=== PATIENT | male | born 2000 | race Caucasian/White ===

== ENCOUNTER 2023-05-17 07:17 | Emergency (ER) | payer OTHER, SELFPAY ==
[2023-05-17 07:21] VITALS: BP 123/85; PULSE 90; RESP 14; TEMP 36.5; O2SAT 97; BMI 18.1
--- NOTE | 2023-05-17 07:34 | ED.ABDPAIN ---
HPI - Abdominal Pain General Time Seen by Provider: 07:34 Date Seen: 05/17/23 Chief Complaint: Abdominal Pain Stated Complaint: Abdominal pain Time Seen by Provider: 05/17/23 07:45 Source: patient and RN notes reviewed Mode of arrival: ambulatory Limitations: no limitations History of Present Illness HPI narrative: Patient is a very pleasant 22-year-old male who comes to the emergency room for evaluation regarding ongoing abdominal pain. Patient awoke from sleep on MondayMay 14 with abdominal pain that he shows to be in the hypogastrium periumbilical area. This pain has persisted and has been associated with loose nonbloody stools in slight amounts since that time. Patient notes some mild nausea but no vomiting. Patient has not had any recent travel, recent antibiotic use or ingestion of any uncooked meats. No unusual pets at home. Abdominal pain does not radiate. Patient tried Tylenol earlier and states that did not touch the pain. Person who accompanies him here today notes that she also did not feel well on Monday but feels well now. Patient has a past history of pneumothorax x2 status post pleurodesis. Related Data Home Medications Medication Instructions Recorded Confirmed sertraline 25 mg tablet (Zoloft) 12.5 mg PO DAILY 05/17/23 05/17/23 Allergies Allergy/AdvReac Type Severity Reaction Status Date / Time No Known Drug Allergies Allergy Verified 05/17/23 07:28 Review of Systems Status of ROS Reports: 10 or more systems reviewed and unremarkable except as noted in History and below Const Denies: fever, chills or fatigue ENMT Denies: throat pain, neck pain or difficulty swallowing Cardio Denies: chest pain or shortness of breath with exertion Resp Denies: shortness of breath or cough GI Reports: abdominal pain, nausea and diarrhea (Nonbloody); Denies: vomiting, difficulty swallowing or blood in stool Denies: painful urination or urinary frequency Musculo Denies: neck pain Endo Denies: fatigue Exam Narrative: Exam Narrative: Alert and oriented. Nontoxic in appearance. Neck is supple. Heart with regular rate and rhythm. Lungs are clear bilaterally. Abdomen has some diffuse tenderness. Patient is certainly tender over the periumbilical area but also right lower quadrant epigastrium and left upper quadrant. Lower extremities without edema. Const: Vital Signs, click to edit/add: Vital Signs - 24 hr 05/17/23 07:21 Temperature 97.7 F Pulse Rate [Pulse Oximeter] 90 Respiratory Rate 14 Blood Pressure [Ri ght Upper Arm] 123/85 Pulse Oximetry 97 Oxygen Delivery Me thod Room Air Documenting provider has reviewed patient's vital signs: yes Course Course ED Course: At this time patient presents with ongoing pain in the abdomen for 3 days associated with only small amounts of loose stools. Differential diagnosis includes but is not limited to appendicitis, colitis, enterocolitis, gastritis, pancreatitis, Crohn's disease, ulcerative colitis. Will place IV in use Toradol 15 mg IV, Zofran 4 mg IV and 1 L of normal saline for discomfort. Will also check CBC, comprehensive panel, bilirubin, CRP, urinalysis, abdominal CT. At this time will sign patient out to my partner Dr. Westbrook for lab and radiological study examination as well as disposition. Vital Signs Vital signs: Initial Vital Signs Temperature 97.7 F 05/17/23 07:21 Temperature Source Temporal Artery Scan 05/17/23 07:21 Pulse Rate 90 05/17/23 07:21 Respiratory Rate 14 05/17/23 07:21 Blood Pressure 123/85 05/17/23 07:21 Blood Pressure Mean 97 05/17/23 07:21 Blood Pressure Position Supine 05/17/23 07:21 Pulse Oximetry 97 05/17/23 07:21 Oxygen Delivery Method Room Air 05/17/23 07:21 Vital Signs Temperature 97.7 F 05/17/23 07:21 Pulse Rate 90 05/17/23 07:21 Respiratory Rate 14 05/17/23 07:21 Blood Pressure 123/85 05/17/23 07:21 Pulse Oximetry 97 05/17/23 07:21 Oxygen Delivery Method Room Air 05/17/23 07:21 Temperature 97.7 F 05/17/23 07:21 Pulse Rate 90 05/17/23 07:21 Respiratory Rate 14 05/17/23 07:21 Blood Pressure 123/85 05/17/23 07:21 Pulse Oximetry 97 05/17/23 07:21 Oxygen Delivery Method Room Air 05/17/23 07:21 Discharge Plan Discharge Prescriptions: No Action sertraline [Zoloft] 25 mg tablet 12.5 mg PO DAILY Patient Comments: taking 10 mg
--- NOTE | 2023-05-17 07:44 | CRLHL7_ITS ---
For Patients: As a result of the Century Cures Act, medical imaging exams and procedure reports are released immediately into your electronic medical record. You may view this report before your referring provider. If you have questions, please contact your health care provider. INDICATION: Abdominal pain started 05/15/2023. Periumbilical pain. COMPARISON: None TECHNIQUE: CT examination of the abdomen and pelvis was performed following the uneventful intravenous administration of 65 cc of Isovue 370. Thin section axial images were obtained from the lung bases through the pubic symphysis. Oral contrast was not administered. Please note that all CT scans at this facility use dose modulation, iterative reconstruction, and/or weight-based dosing when appropriate to reduce radiation dose to as low as reasonably achievable. FINDINGS: LUNG BASES: The lung bases as visualized appear normal.The heart size is normal at the lung bases. LIVER/BILIARY SYSTEM:The liver is normal in size and configuration. There is no focal mass and there is no intra- or extra hepatic biliary ductal dilatation.The gall bladder appears normal. ADRENALS: Normal KIDNEYS, URETERS and BLADDER:The kidneys appear normal. No visible mass, calculus or hydronephrosis. The ureters and bladder as visualized appear normal. SPLEEN:Normal appearance. PANCREAS: Appears normal. RETROPERITONEUM and MESENTERY: There is no mass, adenopathy or aortic aneurysm. GASTROINTESTINAL SYSTEM: There is thickening of the wall of the cecum, ascending colon and a small portion of the transverse colon probably representing colitis. The appendix does not appear to be inflamed. There is no bowel obstruction. The small bowel appears to be normal. PELVIS: No mass, adenopathy or free fluid. OSSEOUS STRUCTURES and ABDOMINAL WALL: There is an age-appropriate appearance of the osseous structures.No significant abdominal wall defect. OTHER: No free fluid or free air. IMPRESSION: Findings likely related to colitis of the cecum, ascending colon and a portion of the transverse colon. No evidence of appendicitis. Please note that all CT scans at this facility use dose modulation, iterative reconstruction, and/or weight-based dosing when appropriate to reduce radiation dose to as low as reasonably achievable. Dictated by Girma Deutsch MD @ 05/17/2023 8:45:32 AM (Electronically Signed)
[2023-05-17] MEDS: 0.9 % SODIUM CHLORIDE 1000 ml 1,000 ML IV (08:01)
[2023-05-17] MEDS: ONDANSETRON 2 MG/ML inj 4 MG IVP (08:02)
[2023-05-17] MEDS: KETOROLAC 15 MG/ML inj IVP (08:03)
[2023-05-17 08:21] LABS: Basophils Absolute Auto 0.04 K/uL (0.00-0.30); Basophils Percent Auto 0.5 % (0.0-3.0); Eosinophils Absolute Auto 0.11 K/uL (0.00-0.50); Eosinophils Percent Auto 1.3 % (0.0-7.0); Hemoglobin* 17.5 gm/dL (13.5-17.5); Immature Granulocytes Abs Auto 0.01 K/uL (0.00-0.30); Immature Granulocytes Pct Auto 0.1 %; Lymphocytes Percent Auto 12.2 % (20-44); Mean Corpuscular HGB Conc 35 gm/dL (32-36); Mean Corpuscular Hemoglobin 30 pg (26-34); Mean Corpuscular Volume 86 fL (80-100); Monocytes Percent Auto 9.5 % (0.0-11.0); Neutrophils Percent Auto 76.4 % (42.0-72.0); Platelet Count* 154 K/uL (140-440); RDW Coefficient of Variation % 12.7 % (11.5-15.5); Red Blood Count 5.83 m/uL (4.30-5.90); White Blood Count* 8.29 K/uL (4.50-11.00)
[2023-05-17 08:26] LABS: Slide Review Reflex No
[2023-05-17 08:32] VITALS: BP 116/78; PULSE 78; RESP 12; O2SAT 98
[2023-05-17 08:38] LABS: Albumin* 4.9 g/dL (3.3-5.0); Chloride* 103 mmol/L (96-114)
[2023-05-17 08:39] LABS: Potassium* 3.9 mmol/L (3.6-5.1); Sodium* 138 mmol/L (135-149)
[2023-05-17 08:41] LABS: Anion Gap 15 mEq/L (7-15); Bilirubin Total* 3.5 mg/dL (0.1-1.5); Carbon Dioxide* 20 mmol/L (20-32); Creatinine* 0.9 mg/dL (0.5-1.5); Est. Creatinine Clearance* 106.47; Estimated Glomerular Filt Rate 123 ml/min
[2023-05-17 08:42] LABS: Alanine Aminotransferase* 37 U/L (4-50); Alkaline Phosphatase* 71 U/L (40-150); Aspartate Amino Transferase* 23 U/L (12-35); Blood Urea Nitrogen* 14 mg/dL (5-24); Calcium* 9.8 mg/dL (8.4-10.6); Glucose* 92 mg/dL (60-115); Total Protein* 8.3 g/dL (6.0-8.3)
[2023-05-17 08:45] LABS: C Reactive Protein* 5.3 mg/dL (0.5-1.0)
--- NOTE | 2023-05-31 09:20 | ED_ITS ---
HPI - General Adult General Chief complaint: Abdominal Pain Stated complaint: Abdominal pain Time Seen by Provider: 05/17/23 07:45 Source: patient and RN notes reviewed Mode of arrival: ambulatory Limitations: no limitations History of Present Illness HPI narrative: Inadvertently the patient's dictation was not done the time of his visit. Jackson is a 22-year-old white male who presented with lower abdominal pain for a couple days duration, Dr. Rod had ordered a CT scan of the abdomen, that did show colitis. Please see Dr. Rod's note, the patient did have colitis, will send him with stool cultures, pain control with [place], follow up with regular doctor, light diet. Patient was comfortable plan will be discharge as above. Follow-up in a couple of days with primary care. Related Data Home Medications Medication Instructions Recorded Confirmed sertraline 25 mg tablet (Zoloft) 12.5 mg PO DAILY 05/17/23 05/17/23 Previous Rx's Medication Instructions Recorded hydrocodone 7.5 mg-acetaminophen 1 tab PO Q8H PRN pain #14 tabs 05/17/23 325 mg tablet Allergies Allergy/AdvReac Type Severity Reaction Status Date / Time No Known Drug Allergies Allergy Verified 05/17/23 07:28 PFSH PFS Social History Smoking Status: Current every day smoker Do you use any of these nicotine containing products: Vaping Products Second hand tobacco smoke exposure: No How often do you have a drink containing alcohol: 2-3 times a week How many standard drinks containing alcohol do you have on a typical day: 1 or 2 How often do you have six or more drinks on one occasion: Never AUDIT-C Alcohol total score: 3 Non-prescribed substance use: denies use Course Vital Signs Vital signs: Initial Vital Signs Temperature 97.7 F 05/17/23 07:21 Temperature Source Temporal Artery Scan 05/17/23 07:21 Pulse Rate 90 05/17/23 07:21 Respiratory Rate 14 05/17/23 07:21 Blood Pressure 123/85 05/17/23 07:21 Blood Pressure Mean 97 05/17/23 07:21 Blood Pressure Position Supine 05/17/23 07:21 Pulse Oximetry 97 05/17/23 07:21 Oxygen Delivery Method Room Air 05/17/23 07:21 Vital Signs Temperature 97.7 F 05/17/23 07:21 Pulse Rate 90 05/17/23 07:21 Respiratory Rate 14 05/17/23 07:21 Blood Pressure 123/85 05/17/23 07:21 Pulse Oximetry 97 05/17/23 07:21 Oxygen Delivery Method Room Air 05/17/23 07:21 Temperature 97.7 F 05/17/23 07:21 Pulse Rate 78 05/17/23 08:32 Respiratory Rate 12 05/17/23 08:32 Blood Pressure 116/78 05/17/23 08:32 Pulse Oximetry 98 05/17/23 08:32 Oxygen Delivery Method Room Air 05/17/23 08:32 Medical Decision Making Lab Data Labs: Lab Results 05/17/23 Range/Units 07:55 WBC 8.29 (4.50-11.00) K/uL RBC 5.83 (4.30-5.90) m/uL Hgb 17.5 (13.5-17.5) gm/dL Hct 50.0 (37.0-53.0) % MCV 86 (80-100) fL MCH 30 (26-34) pg MCHC 35 (32-36) gm/dL RDW Coeff of Dony 12.7 (11.5-15.5) % Plt Count 154 (140-440) K/uL Neut % (Auto) 76.4 H (42.0-72.0) % Lymph % (Auto) 12.2 L (20-44) % [place] % (Auto) 9.5 (0.0-11.0) % Eos % (Auto) 1.3 (0.0-7.0) % Baso % (Auto) 0.5 (0.0-3.0) % Neut # (Auto) 6.30 (1.7-7.0) K/uL Lymph # (Auto) 1.00 (0.90-2.90) K/uL [place] # (Auto) 0.80 (0.00-0.90) K/UL Eos # (Auto) 0.11 (0.00-0.50) K/uL Baso # (Auto) 0.04 (0.00-0.30) K/uL Abs Immat Gran (auto) 0.01 (0.00-0.30) K/uL Imm/Tot Granulo (auto) 0.1 % Sodium 138 (135-149) mmol/L Potassium 3.9 (3.6-5.1) mmol/L Chloride 103 (96-114) mmol/L Carbon Dioxide 20 (20-32) mmol/L Anion Gap 15 (7-15) mEq/L BUN 14 (5-24) mg/dL Creatinine 0.9 (0.5-1.5) mg/dL Estimated Creat Clear 106.47 Estimated GFR 123 ml/min Glucose 92 (60-115) mg/dL Calcium 9.8 (8.4-10.6) mg/dL Total Bilirubin 3.5 H (0.1-1.5) mg/dL AST 23 (12-35) U/L ALT 37 (4-50) U/L Alkaline Phosphatase 71 (40-150) U/L C-Reactive Protein 5.3 H (0.5-1.0) mg/dL Total Protein 8.3 (6.0-8.3) g/dL Albumin 4.9 (3.3-5.0) g/dL Discharge Plan Discharge Clinical Impression: Colitis Patient Disposition: Home w/ Parent or Adult Condition: Stable Additional Instructions: Collect stool samples at home and bring back to the hospital lab, pain control as needed with [place], may use some ibuprofen as well. Would recheck with regular doctor in 2 days, light activity and light diet meaning no heavy food, pretty much liquids for today and may start more solid food tomorrow if tolerating it. Return to ED if worsening or changes. Activity Level: Light activity Discharge Diet: Full Liquid Prescriptions: New hydrocodone-acetaminophen 7.5-325 mg tablet 1 tab PO Q8H PRN (Reason: pain) Qty: 14 0RF No Action sertraline [Zoloft] 25 mg tablet 12.5 mg PO DAILY Patient Comments: taking 10 mg Follow Up/Referrals: Provider,Not a Local [Primary Care Provider] - Stand Alone Forms: [employer] Info Instructions
== END 2023-05-17 10:02 | disposition home or self-care (01) ==
PROVIDERS: Family Medicine; Emergency Provider Family Medicine
DX: K52.9 Noninfective gastroenteritis and colitis, unspecified (principal)
CPT/HCPCS: 36415; 74177; 80053; 81001; 85025; 86140; 87045; 87046; 87177; 87209; 87427; 87493; 96374; 96375; 99284; 99285; J1885; J2405; J7030; Q9967

== ENCOUNTER 2024-04-26 14:44 | Emergency (ER) | payer OTHER, SELFPAY ==
[2024-04-26 14:48] VITALS: BP 107/72; PULSE 122; RESP 16; TEMP 36.4; O2SAT 100
--- NOTE | 2024-04-26 15:09 | ED_ITS ---
HPI - General Adult General Date Seen: 04/26/24 Chief complaint: Psychiatric Problem/Disorder Stated complaint: Mental health Time Seen by Provider: 04/26/24 15:05 History of Present Illness HPI narrative: 23-year-old previously healthy male presents to the ER today, accompanied by his mother with concern for mental health crisis, anxiety, depression, and occasional thoughts of suicide. History from the patient's mother is that he does have a long history of mental health problems. It sounds like he struggle with anxiety or possibly social anxiety disorder. He has been living at home [place] life and never moved out after high school. He never went to [employer] has never had a job. He is generally isolated at home and spends ?99% of his time? at home. He is active on line and has online relationships. He and his family recently moved from [place] to [place] so he has lost contact with what friends he had at his previous home. He has been in a relationship with a girl that he met online. She lives in [place] but has been here to [place] to visit him several times. It sounds like that relationship is not always been supportive. Often times when he tries to confide his feelings to her, she makes him feel guilty in bad for ?ruining h er day. ? Ultimately he says that she just has not been treating him right. On Monday he broke up with her. He was distraught about the break-up and then he saw the following day that she had already posted something new in her online home and had established a relationship with another person. Apparently other person is also part of their arm line group of friends and they have known him for a few weeks. He is very upset about the break-up. He just feels empty and hopeless. He feels like the entire relationship was meaningless in that his whole life is meaningless. He feels like he would be better off if he were not alive. He has had thoughts about self-harm. However they are not persistent. He has not made any plans. No actual attempt to hurt himself. He just can not stop his cycle of thinking about how meaning his relationship was. He is very depressed and anxious. He does use marijuana vape 3 times a day which helps with his anxiety. In the past he had been on lorazepam for anxiety. He does not currently have any meds or any therapist. His mother says that they have an appointment set up next week with the therapist. Related Data Home Medications ?Medication ?Instructions ?Recorded ?Confirmed sertraline 25 mg tablet (Zoloft) 12.5 mg PO DAILY 05/17/23 05/17/23 Previous Rx's ?Medication ?Instructions ?Recorded hydrocodone 7.5 mg-acetaminophen 1 tab PO Q8H PRN pain #14 tabs 05/17/23 325 mg tablet lorazepam 1 mg tablet 1 mg PO TID PRN #10 tabs 04/26/24 Allergies Allergy/AdvReac Type Severity Reaction Status Date / Time No Known Drug Allergies Allergy Verified 05/17/23 07:28 [facility] Social History Smoking Status: Current every day smoker Do you use any of these nicotine containing products: Vaping Products Second hand tobacco smoke exposure: No How often do you have a drink containing alcohol: never How often do you have six or more drinks on one occasion: Never AUDIT-C Alcohol total score: 0 Non-prescribed substance use: marijuana (any form) Exam Narrative: Exam Narrative: Constitutional: Appears well-developed and well-nourished. Alert. Conversant but anxious, somewhat tremulous. Mother attentively aside HENT: Head: Atraumatic. Nose: Nose normal. Mouth/Throat: Oral mucosa is clear and moist. no trismus. Pharynx normal. Eyes: Conjunctivae normal. EOM normal. Pupils equal, round, and reactive to light. No scleral icterus. Neck: Normal range of motion. Neck supple. No tracheal deviation present. Cardiovascular: Normal rate, regular rhythm. No gallop. No friction rub. No murmur heard. Pulmonary/Chest: Effort normal. No stridor. No respiratory distress. No wheezes. No rales. No rhonchi Abdominal: Soft.No distension. No mass. No tenderness. No rebound. No guarding. Musculoskeletal: RUE: Normal range of motion. No tenderness. No deformity LUE: Normal range of motion. No tenderness. No deformity RLE: Normal range of motion. No edema. No tenderness. No deformity LLE: Normal range of motion. No edema. No tenderness. No deformity Neurological: Alert and oriented to person, place, and time. Normal strength. CN II-VII intact. No sensory deficit. GCS eye subscore is 4. GCS verbal subscore is 5. GCS motor subscore is 6. Normal coordination Skin: Skin is warm and dry. No rash noted. No pallor. Normal capillary refill. Psychiatric: He looks anxious and worried. Somewhat tremulous. Endorses feeling hopeless an empty. Feels like he would be better off if he were . He has had thoughts of suicide but not planning. Has not made any attempt to harm himself. He says he just can not stop thinking about how quickly his girlfriend got over him and started a relationship with a new person (the following day after their break-up). He just does not think his life is worth living. He does not know what to do. He is perseverating about other relationship, not sleeping very well. Appetite is decreased. Const: Vital Signs, click to edit/add: Vital Signs - 24 hr 04/26/24 14:48 Temperature 97.6 F Pulse Rate [Pulse Oximeter] 122 H Respiratory Rate 16 Blood Pressure [Ri ght Upper Arm] 107/72 Pulse Oximetry 100 Oxygen Delivery Me thod Room Air Course Vital Signs Vital signs: Initial Vital Signs Temperature 97.6 F 04/26/24 14:48 Temperature Source Oral 04/26/24 14:48 Pulse Rate 122 H 04/26/24 14:48 Respiratory Rate 16 04/26/24 14:48 Blood Pressure 107/72 04/26/24 14:48 Blood Pressure Mean 83 04/26/24 14:48 Blood Pressure Position Sitting 04/26/24 14:48 Pulse Oximetry 100 04/26/24 14:48 Oxygen Delivery Method Room Air 04/26/24 14:48 Vital Signs Temperature 97.6 F 04/26/24 14:48 Pulse Rate 122 H 04/26/24 14:48 Respiratory Rate 16 04/26/24 14:48 Blood Pressure 107/72 04/26/24 14:48 Pulse Oximetry 100 04/26/24 14:48 Oxygen Delivery Method Room Air 04/26/24 14:48 Temperature 97.6 F 04/26/24 14:48 Pulse Rate 122 H 04/26/24 14:48 Respiratory Rate 16 04/26/24 14:48 Blood Pressure 107/72 04/26/24 14:48 Pulse Oximetry 100 04/26/24 14:48 Oxygen Delivery Method Room Air 04/26/24 14:48 Medications Administered Medications: Discontinued Medications Generic Name Dose Route Start Last Admin Trade Name Montrell CHERRY Reason Stop Dose Admin Lorazepam 1 mg 04/26/24 15:42 04/26/24 15:50 Lorazepam 1 Mg Tablet PO 04/26/24 15:43 1 mg ONCE ONE Administration Medical Decision Making MDM Narrative Medical decision making narrative: 23-year-old male presenting to the ER today with his mother for evaluation of depression, anxiety, suicidal thoughts. He has a long history of anxiety and what sounds like possibly agoraphobia. He essentially had does not leave the house and really has not been leaving the house since he graduated high school. He he does not have a job. He broke up with his girlfriend (mostly an online relationship with occasional in-person visits) of 2 years, this week. Since then he has been very depressed and feeling hopeless. He does endorse anxiety and depression and can not believe how quickly she got over him. He has had thoughts of wanting to but mostly a passive wish. He has had a few thoughts of self-harm but none of them have been persistent and he has not made any plans or taken any actions to harm himself. He says he thinks he safe at home. His mother agrees and feels comfortable with him there and thinks he is safe. He was seen by our hospital social science instructor as well, Hayley. At this point she and I agree that the patient is not holdable. I do think he would meet criteria for a voluntary inpatient admission. He has concerning amounts of anxiety which have prevented him from leaving the house (with occasional exceptions) for several years. It is also limiting his ability to have a job, limiting his ability to have friends and social interactions, or a girlfriend. And top of that he also has an acute stress situation with the break-up with girlfriend this week. However, he does not want hospitalization and his mother agrees with him. Therefore we are obligated to discharge home.. The patient and his mother want to do outpatient management. They already have an appointment with a counselor which will happen 2 weeks from now (not 1 week as I was originally told). We will also set him up for a referral for outpatient psychiatric nurse practitioner follow-up next week. Precautions for return to the ER reviewed. I did provide a short prescription for lorazepam which he can use if needed for anxiety. Discussed the sedation and addictive potential with this. Discharge Plan Discharge Clinical Impression: Acute anxiety, Suicidal thoughts, Stress reaction Patient Disposition: Home, Self-Care Condition: Stable Instructions: Help Prevent Suicide (ED), Anxiety (ED), Suicide Prevention (ED) Prescriptions: New lorazepam 1 mg tablet 1 mg PO TID PRNQty: 10 0RF No Action sertraline [Zoloft] 25 mg tablet 12.5 mg PO DAILY Patient Comments: taking 10 mg hydrocodone-acetaminophen 7.5-325 mg tablet 1 tab PO Q8H PRN (Reason: pain) Qty: 14 0RF Follow Up/Referrals: Provider,Not a Local [Non-Staff] - Stand Alone Forms: [employer] Info Instructions
[2024-04-26] MEDS: LORazepam 1 MG TABLET PO (15:50)
--- NOTE | 2024-04-26 19:17 | PC.SOCIAL ---
Social work: Mental health assessment completed with pt.Please see assessment in chart for details. telephone worker met with mom with patient's permission. Pt has a history of depression, anxiety and ADHD. Mom described pt as having agoraphobia and being unable to leave the house. Pt has recently broken up with his online girlfriend who he used to spend several hours a day communicating with. He saw inline that his ex-girlfriend has already started a new relationship and this is very distressing and anxiety creating for pt. He is depressed and tearful regarding this loss. He denies suicidal or homicidal thoughts. He is not interested in voluntary mental health in-pt hospitalization but is willing to out-pt therapy, medication and accepting support of mother. Pt accepted referral to see Jose Coronel at [facility] on 05/06/24 at 1:00pm and has a scheduled appointment with a new therapist at [facility] for 05/13/24. Provided pt and mother with list of community resources and hotlines for mental health support and the [facility] mobile crisis unit. Patient and mother were appreciative of resources provided and discharge plan.
== END 2024-04-26 18:10 | disposition home or self-care (01) ==
PROVIDERS: Emergency Provider Emergency Medicine; PCP Student in an Organized Health Care Education/Training Program
DX: R45.851 Suicidal ideations (principal); F41.9 Anxiety disorder, unspecified; F43.9 Reaction to severe stress, unspecified
CPT/HCPCS: 99283; A9270

== ENCOUNTER 2025-08-27 19:43 | Emergency (ER) | payer OTHER, SELFPAY ==
--- OUTSIDE RECORDS SUMMARY | 2025-08-27 19:45 | XMS_ITS | Clinical Summary ---
Author Organization [facility] Address [address] [place] [id number] Care Team Providers Care Air Conditioning Installer Supervisor Name Role Phone Denise Larkin MD Primary Care Prov ider Allergies Active AllergyReactionsCriticalityNoted DateCommentsTerbinafineOther - Describe In Comment Field12/22/2022 Elevated liver enzymes Medications MedicationSigDispense QuantityRefillsLast FilledStart DateEnd DateStatus meclizine (ANTIVERT) 25 mg tablet Indications:VertigoTake 1 Tablet (25 mg) by mouth 3 times daily if needed for Vertigo. 30 Tablet 4Active lamoTRIgine 100 mg tablet Indications:HEVER (generalized anxiety disorder),Agoraphobia,Depression, unspecified depression typeTake 1 Tablet (100 mg) by mouth once daily. 90 Tablet 5Active escitalopram oxalate (LEXAPRO) 20 mg tablet Indications:Depression with anxietyTake 1.5 Tablets (30 mg) by mouth once daily. 135 Tablet 5Active Active Problems ProblemNoted DateDiagnosed OcvePjkvaecowob24/10/2022GAD (generalized anxiety disorder)6518Ryxbljdzle28/19/1881NUOC65/19/2019 Immunizations ImmunizationAdministration DatesNext DueDTP-HIB04/20/2001DTaP2004, 05/04/2000,03/03/2000,1999HIB PRP-T (ActHIB,Hiberix)05/04/2000,03/03/2000, 1999Hepatitis A (Peds)12/12/2012,01/16/2012Hepatitis B (Peds)04/20/2001, 09/04/2000,05/04/2000Human Papilloma Virus Nzqlmbt5512/31/2014,11/20/2013 INFLUENZA, IIV3 PF (AGE >= 6 MO)05/06/2024Inactivated Polio Spedemq1011/02/2004, 09/04/2000,03/03/2000,1999Influenza, IIV3 (Age >=3 years)2006 Influenza, JOI896Influenza,LAIV3 Live Intranasal (Flumist)09/07/2012, 06/01/2011,06/15/2010MENINGOCOCCAL VACCINE 2 VIAL 2MO-55YO (MENVEO)05/24/2017MMR 03/03/2004,04/20/2001Meningococcal Vaccine (Menactra)11/09/2010Pneumococcal conj 7-Valent (Prevnar 7)04/20/2001,05/04/2000,03/03/2000,1999Tdap05/24/2017, 11/09/2010Varicella Cewlitj9711/02/2006,02/05/2003,04/20/2001 Social History Tobacco UseTypesPacks/DayYears UsedDateSmoking Tobacco: NeverSmokeless Tobacco: Never Tobacco Cessation:Counseling Given: Yes Alcohol UseStandard Drinks/WeekCommentsNot Currently0 (1 standard drink = 0.6 oz pure alcohol)PHQ-2AnswerDate RecordedPHQ-2 TOTAL [id number] ConnectionsAnswerDate RecordedDo you often feel lonely or isolated from those around you?Financial Resource StrainAnswerDate RecordedDifficulty of Paying Living Fwfsigvy582ifficulty of Paying Living ExpensesNot on file 03/12/2024Food InsecurityAnswerDate RecordedDo you worry your food will run out before you are able to buy more?Transportation NeedsAnswerDate RecordedDoes lack of transportation keep you from medical appointments?1 07/16/2024Does lack of transportation keep you from work, meetings or getting things that you need?Housing StabilityAnswerDate RecordedWhat is your housing situation today?UtilitiesAnswerDate RecordedDo you have trouble paying for utilities (for example, heat, electricity, water, phone)?1 03/12/2024Sex and Gender InformationValueDate RecordedSex Assigned at BirthNot on fileLegal HpkRyhq0911/17/2022 1:35 PM CDTGender IdentityNot on fileSexual OrientationNot on file Last Filed Vital Signs Vital SignReadingTime TakenCommentsBlood Ycaaljch685/6706/24/2024 10:45 AM CDT Mhxbr307206/24/2024 10:45 AM CDTTemperature--Respiratory Rate--Oxygen Saturation 100%06/24/2024 10:45 AM CDTInhaled Oxygen Concentration--Evgwko88.9 kg (143 lb) 12/20/2022 8:24 AM JMFQvboqv085.2 cm (5' 11.34)11/18/2022 1:15 PM CDTBody Mass Index19.76011/18/2022 1:15 PM CDT Plan of Treatment Health MaintenanceDue DateLast DoneCommentsBMI (ht and wt on same day) for age 18+OVID-19 vaccine series (2024- season)2025 04/09/2021, 03/06/2021Influenza Vaccine (#1)/04/2024, 05/24/2017, 09/07/2012, Additional history existsDepression screening for age 12+03/17/2026 03/17/2025, 06/26/2024, 06/24/2024, Additional history existsTetanus booster 7005/24/2017, 11/09/2010Hepatitis B series for 19+[place]22/24/2001, 09/04/2000, 05/04/2000Pneumococcal series for age 6-49Aged Out04/20/2001, 05/04/2000, 03/03/2000, Additional history existsNo longer eligible based on patient's age to complete this topicHPV series for age 9-72Clfykgett01/06/2015, 11/20/2013HIV for age 15-36Mrclpofyc31/24/2023Hepatitis C screening for age 18-27Fpfcgoxeh25/24/2023 Procedures Procedure NamePriorityDate/TimeAssociated DiagnosisCommentsLC HIV-1/O/2, 4TH KPWOQGOENYUamusqp97/24/2023 1:56 PM CDT Encounter for screening for HIV LC HCV ANTIBODY RFX TO QUANT MKGDtwlxsl41/24/2023 1:56 PM CDT Need for hepatitis C screening test from Last 3 Months or Most Recently Relevant to Health Maintenance Results * LC HCV ANTIBODY RFX TO QUANT PCR (11/18/2022 1:56 PM CDT)ComponentValueRef RangeTest MethodAnalysis TimePerformed AtPathologist SignatureHCV AbNon ReactiveNon Sjfwbjxj62/28/2023 11:10 AM [facility]TL[facility])Specimen (Source)Anatomical Location / Laterality Collection Method / VolumeCollection TimeReceived TimeBloodBLOOD SPECIMEN / UnknownVenipuncture / Xsinexf4411/18/2022 1:56 PM CDT11/18/2022 1:58 PM CDT Narrative [facility] ([facility]) - 11/22/2022 11:10 AM CDT Performed at: [address] [place] [address] ??[id number] Clinical Research Specialist: Arian Ruiz MD, Phone: ??[phone] Authorizing ProviderResult TypeResult StatusTara Ev Chicas PALABORATORYFinal ResultPerforming OrganizationAddressCity/State/ZIP CodePhone Number [facility] ([facility]) [address] [place] [id number] * LC HIV-1/O/2, 4TH GENERATION (11/18/2022 1:56 PM CDT)ComponentValueRef Range Test MethodAnalysis TimePerformed AtPathologist SignatureHIV Scr 4th GenNon ReactiveNon Zdteuwqq18/28/2023 12:08 PM CDTLABCORP [facility] ([facility])Comment: HIV Negative HIV-1/HIV-2 antibodies and HIV-1 p24 antigen were NOT detected. There is no laboratory evidence of HIV infection. Specimen (Source)Anatomical Location / LateralityCollection Method / Volume Collection TimeReceived TimeBloodBLOOD SPECIMEN / UnknownVenipuncture / Unknown 11/18/2022 1:56 PM CDT11/18/2022 1:58 PM CDT Narrative [facility] ([facility] - 11/22/2022 12:08 PM CDT Performed at: [address] ??[id number] Clinical Research Specialist: Arian Ruiz MD, Phone: ??[phone] Authorizing ProviderResult TypeResult StatusTara Ev Chicas PALABORATORYFinal ResultPerforming OrganizationAddressCity/State/ZIP CodePhone Number [facility] ([facility]) [address] [place] [address] from Last 3 Months or Most Recently Relevant to Health Maintenance Insurance [place] [id number] Care Teams Team MemberRelationshipSpecialtyStart DateEnd Date Denise Larkin MD PCP - [facility]03/12/24
--- OUTSIDE RECORDS SUMMARY | 2025-08-27 19:45 | XMS_ITS | Clinical Summary ---
Author Organization [facility] Address [address] [place] [address] Care Team Providers Care Technology Lab Teacher Name Role Phone Reagan Golden MD Primary Care Provider [phone] Allergies No known active allergies Medications MedicationSigDispense QuantityRefillsLast FilledStart DateEnd DateStatus hydrOXYzine HCl (ATARAX) 25 mg oral tablet Indications:HEVER (generalized anxiety disorder),AgoraphobiaTake 1 tablet (25 mg) by mouth every 6 (six) hours as needed (anxiety). 30 tablet 102ctive escitalopram oxalate (LEXAPRO) 10 mg oral tablet Indications:Depression, unspecified depression type,HEVER (generalized anxiety disorder)Take 1.5 tablets (15 mg) by mouth once daily. 135 tablet ctive escitalopram oxalate (LEXAPRO) 5 mg oral tablet Indications:HEVER (generalized anxiety disorder)TAKE 1 TABLET BY MOUTH ONCE DAILY FOR 7 DAYS, THEN 2 TABLETS ONCE DAILY FOR 23 DAYS DIRECTED 53 tablet 2Active Active Problems ProblemNoted DateDiagnosed DateGAD (generalized anxiety disorder)10/07/2021 Hzyykfcotwm62/10/2278Odcphbwgldkx78/19/1116YZRJ75/19/7925Xkucnijsle99/19/2019 Resolved Problems ProblemNoted DateDiagnosed DateResolved DatePneumothorax on left06/18/2019 07/22/20196380Wczqivwrtbye33 Immunizations ImmunizationAdministration DatesNext DueDTP/HIB04/20/2001DTaP (Infanrix) 2004,05/04/2000,03/03/2000,1999HIB PRP-T09,03/03/2000, 1999HPV Rnfyyziexztu73/06/2015,11/20/2013Hep A Yzvpfvcge78/17/2013, 01/16/2012Hep B Szzdmddho33/24/2001,09/04/2000,05/04/2000Influenza recombinant (FluBlok Quadrivalent PF)06/19/2019,05/24/2017MMR03/03/2004,04/20/2001 Meningococcal MCV4O (Menveo)05/24/2017Meningococcal MCV4P (Menactra)11/09/2010 Pfizer 12+ Yrs Monovalent COVID Vaccine (purple cap)04/09/2021,03/06/2021 Pneumococcal HOK68004/20/2001,05/04/2000,03/03/2000,1999Polio IPV2004, 09/04/2000,03/03/2000,1999Tdap05/24/2017,11/09/20109333Dzavngrtu72/08/2007, 02/05/2003,04/20/2001 Family History Medical HistoryRelationCommentsDepressionMotherRelationStatusCommentsFatherAlive MotherAlive Social History Tobacco UseTypesPacks/DayYears UsedDateSmoking Tobacco: NeverSmokeless Tobacco: Never Tobacco Cessation:Counseling Given: Not Answered Alcohol UseStandard Drinks/WeekCommentsNo0 (1 standard drink = 0.6 oz pure alcohol)PHQ-2AnswerDate RecordedPHQ2 Scrxy463ex and Gender Information ValueDate RecordedSex Assigned at BirthNot on fileLegal MbnKtcd2412/17/2012 1:13 PM CDTGender IdentityNot on fileSexual OrientationNot on file Last Filed Vital Signs Vital SignReadingTime TakenCommentsBlood Nlrtiwwd593/6208 3:56 PM CDT Imiqq830004/13/2022 4:14 PM BHGUgyikuwmqjq99.9 ??C (98.5 ??F)04/13/2022 3:56 PM CDTRespiratory Pyul067403/06/2021 8:09 AM CDTOxygen Nojgfsvtrz186%04/07/2022 4:08 PM CDTInhaled Oxygen Concentration--Hkynjz54.6 kg (122 lb 8 oz)04/13/2022 3:56 PM TEUOfgnja662.4 cm (6' 1)04/13/2022 3:56 PM CDTBody Mass Index16.16004/13/2022 3:56 PM CDT Plan of Treatment Health MaintenanceDue DateLast DoneCommentsHepatitis C Vmajdphon03/07/2000 Anxiety Follow-Up (HEVER-7)11/01/2000Depression Follow-Up (PHQ-9)11/01/2000 Pneumococcal Vaccine (1 of 2 - PCV), 05/04/2000, 03/03/2000, Additional history existsCOVID-19 Vaccine ( - 2024- season)2025 04/09/2021, 03/06/2021Influenza Vaccine (#1), 05/24/2017 Adult Tetanus Njmgnnm12, 11/09/2010RSV Vaccines (1 - 1-dose 75+ series)11/01/2074HPV WufkkvmUwhucaddt92/06/2015, 11/20/2013Meningococcal B VaccineAged OutNo longer eligible based on patient's age to complete this topic Medical Devices ImplantedTypeAreaManufacturerDevice IdentifierShelf Expiration DateModel / Serial / LotCath Multipurpose Drainage - [id number] Implanted:Qty: 1 on 06/20/2019 by [facility]des [facility] [id number] / / [id number] Insurance * Guarantor: Jackson Evans TypeRelation to PatientDate of BirthPhone Billing AddressPersonal/FlpqzlZeyi26/07/2001 [address] [place] [address] [place] [id number] * Guarantor: Jackson EvansAccount TypeRelation to PatientDate of BirthPhone Billing AddressPersonal/KwflgyEiae60/07/[address] [place] [address] Advance Directives For more information, please contact: [phone] * Full Code (Latest Code Status on File) Date ActivatedDate XaddeglbmazScvhvfxg57/19/2019 7:20 PM07/22/2019 6:48 PM QuestionAnswerCommentsHow was code status determined?* Previous Documentation * Full Code Date ActivatedDate BoheosjijzjUbspkhru70/19/2019 5:03 AM07/16/2019 6:27 PM QuestionAnswerCommentsHow was code status determined?* Patient * Full Code Date ActivatedDate YkvclrybnebAseouqkx46/22/2019 10:53 PM10 10:59 PM QuestionAnswerCommentsHow was code status determined?* Patient * Full Code Date ActivatedDate OfncxqaewibYmlscgzx42/22/2019 12:05 PM10 10:39 PM QuestionAnswerCommentsHow was code status determined?* Patient Care Teams Team MemberRelationshipSpecialtyStart DateEnd Date Reagan Golden MD PCP - KwatpvzOdvxpnfeqi60/23/19
[2025-08-27 19:46] VITALS: BP 125/84; PULSE 106; RESP 20; TEMP 36.8; O2SAT 100; BMI 17.7
--- NOTE | 2025-08-27 20:01 | ED.GENADULT ---
HPI - General Adult General Chief complaint: Shortness of Breath/Dyspnea Stated complaint: difficulty breathing Time Seen by Provider: 08/27/25 19:52 History of Present Illness HPI narrative: pt reports increased shortness of breath when standing. States he feels like he might pass out. This started around 5pm. Mother reports pt is getting over a virus. 24-year-old man presenting to the emergency department with concern of increasing shortness of breath. Also cough that is instigated particularly when goes to sit up. He is more short of breath with exertion. Not dizzy but felt like he might pass out. No chest pain. No sense of palpitations. Have a virus present in the family has mom reports. No testing apparently done yet. does have a history of spontaneous pneumothorax. Admittedly is scared, anxious but what might be going on. Apparently no fever measured. Did have some diarrhea today. No abdominal pain noted. Sounds to be experiencing fits of coughing. Mom herself has a history of asthma but Bernardo it was never diagnosed with asthma or reactive airway or wheeze. Related Data Home Medications ?Medication ?Instructions ?Recorded ?Confirmed sertraline 25 mg tablet (Zoloft) 12.5 mg PO DAILY 05/17/23 05/17/23 Previous Rx's ?Medication ?Instructions ?Recorded hydrocodone 7.5 mg-acetaminophen 1 tab PO Q8H PRN pain #14 tabs 05/17/23 325 mg tablet lorazepam 1 mg tablet 1 mg PO TID PRN #10 tabs 04/26/24 benzonatate 100 mg capsule 100 - 200 mg (1 - 2 x 100 mg) PO 08/27/25 BID-TID PRN cough #20 caps Allergies Allergy/AdvReac Type Severity Reaction Status Date / Time No Known Drug Allergies Allergy Verified 05/17/23 07:28 Review of Systems Status of ROS: Reports: 6 or more systems reviewed and unremarkable except as noted in History and below PFSH PFSH Social History Smoking Status: Current every day smoker Do you use any of these nicotine containing products: Vaping Products Second hand tobacco smoke exposure: No How often do you have a drink containing alcohol: never How often do you have six or more drinks on one occasion: Never AUDIT-C Alcohol total score: 0 Non-prescribed substance use: marijuana (any form) Exam Narrative: Exam Narrative: Pleasant. Tall, slim. Labored in his breathing but noted to be saturating 1 are present in room air. Oropharynx with some erythema posteriorly and mucous in posterior oropharyngeal folds. Neck is supple without lymphadenopathy. No supraclavicular crepitus. Lungs clear with full breath sounds. Maybe a little harsh but no wheeze. Heart is tachycardic in a regular rhythm. Abdomen is soft and nontender. Extremities well perfused without edema. Const: Vital Signs, click to edit/add: Vital Signs - 24 hr 08/27/25 19:46 08/27/25 21:18 08/27/25 21:30 Temperature 98.2 F Pulse Rate 94 104 H Pulse Rate [Left P ulse Oximeter] 106 H Respiratory Rate 20 Blood Pressure [Ri ght Upper Arm] 125/84 Pulse Oximetry 100 98 96 Oxygen Delivery Me thod Room Air 08/27/25 21:45 Temperature Pulse Rate 95 Pulse Rate [Left P ulse Oximeter] Respiratory Rate Blood Pressure [Ri ght Upper Arm] Pulse Oximetry 97 Oxygen Delivery Me thod Documenting provider has reviewed patient's vital signs: yes Course Vital Signs Vital signs: Initial Vital Signs Temperature 98.2 F 08/27/25 19:46 Temperature Source Temporal Artery Scan 08/27/25 19:46 Pulse Rate 106 H 08/27/25 19:46 Pulse Rhythm Regular 08/27/25 19:46 Respiratory Rate 20 08/27/25 19:46 Blood Pressure 125/84 08/27/25 19:46 Blood Pressure Mean 97 08/27/25 19:46 Blood Pressure Position Sitting 08/27/25 19:46 Pulse Oximetry 100 08/27/25 19:46 Oxygen Delivery Method Room Air 08/27/25 19:46 Vital Signs Temperature 98.2 F 08/27/25 19:46 Pulse Rate 106 H 08/27/25 19:46 Respiratory Rate 20 08/27/25 19:46 Blood Pressure 125/84 08/27/25 19:46 Pulse Oximetry 100 08/27/25 19:46 Oxygen Delivery Method Room Air 08/27/25 19:46 Temperature 98.2 F 08/27/25 19:46 Pulse Rate 95 08/27/25 21:45 Respiratory Rate 20 08/27/25 19:46 Blood Pressure 125/84 08/27/25 19:46 Pulse Oximetry 97 08/27/25 21:45 Oxygen Delivery Method Room Air 08/27/25 19:46 Medical Decision Making MDM Narrative Medical decision making narrative: I suspect that is going to test positive for influenza considering community prevalence. With history though would check for potential pneumothorax. Pulmonary infiltrate otherwise? dysrhythmia? All exacerbated by some anxiety over this circumstance. is indeed positive for influenza A. Two-view chest x-ray independently reviewed by me appears to be without pneumothorax or edema. Normal cardiac silhouette. No infiltrate. On reassessment appears to feel better. It seems that this information is somewhat reassuring. Is not wringing his hands quite as much. vitals stable. No longer tachycardic. See patient discharge plan for further discussion focus on hydration. might sleep Under the mist of a cool mist humidifier. Menthol vapors might be helpful. Pseudoephedrine might be helpful for drying and decongestion and therefore help with cough however sending in benzonatate also known as Tessalon Perles to help with your cough. Treat aches. Can take up to 800 mg of ibuprofen or up to 1000 mg of acetaminophen per dose. Be seen for persistent and increasing shortness of breath particularly accompanied by worsening fever, repeated vomiting. Medical Records Medical records reviewed: Yes I reviewed the patient's medical records Lab Data Lab results reviewed: Yes I reviewed the patient's lab results Labs: Lab Results 08/27/25 Range/Units 20:40 SARS-CoV-2 (PCR) Negative SARS-CoV-2 (Negative) Influenza Type A (PCR) POSITIVE PCR FLU A A (Negative) Influenza Type B (PCR) Negative PCR FLU B (Negative) RSV (PCR) Negative PCR RSV (Negative) ECG Data Attestation: I personally reviewed and interpreted this ECG as follows: ( Normal sinus rhythm at a rate of 91. I do not appreciate ischemic changes or hints at arrhythmia) Discharge Plan Discharge Clinical Impression: Type A influenza, Cough Patient Disposition: Home w/ Parent or Adult Condition: Improved Additional Instructions: focus on hydration. might sleep Under the mist of a cool mist humidifier. Menthol vapors might be helpful. Pseudoephedrine might be helpful for drying and decongestion and therefore help with cough however sending in benzonatate also known as Tessalon Perles to help with your cough. Treat aches. Can take up to 800 mg of ibuprofen or up to 1000 mg of acetaminophen per dose. Be seen for persistent and increasing shortness of breath particularly accompanied by worsening fever, repeated vomiting. Activity Level: No Restrictions Discharge Diet: Regular Prescriptions: New benzonatate 100 mg capsule 100 - 200 mg PO BID-TID PRN (Reason: cough) Qty: 20 0RF No Action sertraline [Zoloft] 25 mg tablet 12.5 mg PO DAILY Patient Comments: taking 10 mg hydrocodone-acetaminophen 7.5-325 mg tablet 1 tab PO Q8H PRN (Reason: pain) Qty: 14 0RF lorazepam 1 mg tablet 1 mg PO TID PRNQty: 10 0RF Follow Up/Referrals: Denise Larkin MD [Primary Care Provider, Family Practice] Stand Alone Forms: [employer] Info Instructions
--- NOTE | 2025-08-27 20:15 | CRLHL7_ITS ---
For Patients: As a result of the Cures Act, medical imaging exams and procedure reports are released immediately into your electronic medical record. You may view this report before your referring provider. If you have questions, please contact your health care provider. INDICATION: Dyspnea. Recent cold symptoms. History of pneumothorax. TECHNIQUE: Chest 2 views. COMPARISON: None. FINDINGS: No pneumothorax or pleural effusion. Lungs are clear. Cardiac and mediastinal contours are within normal limits. Upper abdomen and osseous structures as imaged show no acute abnormality. IMPRESSION: No evidence of acute cardiopulmonary disease. Dictated by Jung Marroquin MD @ 08/27/2025 8:51:25 PM (Electronically Signed)
[2025-08-27 21:18] VITALS: PULSE 94; O2SAT 98
[2025-08-27 21:29] LABS: PCR FLU A POSITIVE PCR FLU A (Negative); PCR FLU B Negative PCR FLU B (Negative); PCR RSV Negative PCR RSV (Negative); SARS PCR* Negative SARS-CoV-2 (Negative)
[2025-08-27 21:30] VITALS: PULSE 104; O2SAT 96
[2025-08-27 21:45] VITALS: PULSE 95; O2SAT 97
== END 2025-08-27 21:54 | disposition home or self-care (01) ==
PROVIDERS: Emergency Provider Family Medicine; PCP Student in an Organized Health Care Education/Training Program
DX: J10.1 Influenza due to other identified influenza virus with other respiratory manifestations (principal); R05.9 Cough, unspecified; R06.02 Shortness of breath; F17.210 Nicotine dependence, cigarettes, uncomplicated; F12.90 Cannabis use, unspecified, uncomplicated
CPT/HCPCS: 71046; 87631; 93005; 94761; 99284; 99285